=== PATIENT | male | born 1970 | race Caucasian/White ===

== ENCOUNTER 2019-03-22 11:11 | Emergency (ER) | payer OTHER ==
[2019-03-22 11:23] VITALS: BP 161/91; PULSE 103; TEMP 97.8; BMI 26.7
[2019-03-22] MEDS ORDERED: TETRACAINE 0.5% HCL 0.6ML DROPPER.BOTTLE OD ONE (11:50)
[2019-03-22] MEDS ORDERED: FLUORESCEIN NA 1 EA STRIP ONE (11:52)
[2019-03-22] MEDS ORDERED: TETRACAINE 0.5% OPHTH SOLN 2 ML BOTTLE ONE (11:52)
--- NOTE | 2019-03-22 12:09 | PDOC ---
History of Present Illness - General Chief Complaint: Eye Problem Stated Complaint: EYE PROBLEM Time Seen by Provider: 03/22/19 11:40 History Source: Patient Exam Limitations: No Limitations Past History - Past Medical History Allergies/Adverse Reactions: Allergies Allergy/AdvReac Type Severity Reaction Status Date / Time No Known Allergies Allergy Verified 03/22/19 11:21 Home Medications: Ambulatory Orders Ofloxacin 0.3% Ophth Soln [Ocuflox -] 2 drop OS Q6H #1 bottle 03/22/19 - Suicide/Smoking/Psychosocial Hx Smoking History: Never smoked Information on smoking cessation initiated: No Hx Alcohol Use: No Drug/Substance Use Hx: No *Physical Exam - Vital Signs Last Vital Signs Temp Pulse Resp BP Pulse Ox 97.8 F 103 H 16 161/91 98 03/22/19 11:21 03/22/19 11:21 03/22/19 11:21 03/22/19 11:21 03/22/19 11:21 - Physical Exam General Appearance: No: Apparent Distress HEENT: positive: EOMI, DESIRE, Other (vision 20/20 R eye, 20/30 L eye, L eye injected, tearing, +dye uptake on exam with small corneal abrasion noted) Respiratory/Chest: positive: Lungs Clear, Normal Breath Sounds. negative: Respiratory Distress Cardiovascular: positive: Regular Rhythm, Regular Rate, S1, S2. negative: Murmur Medical Decision Making - Medical Decision Making 48 y/o M with no sig pmh, no prior eye surgeries, presents with L eye pain from last night after his 1 year old daughter hit his eye. C/O L eye redness, tearing , pain and slightly blurred vision in eye. Wears glasses; not wearing contacts. Denies fever, n/v L corneal abrasion noted on exam 03/22/19 12:03 *DC/Admit/Observation/Transfer Diagnosis at time of Disposition: Corneal abrasion, left Qualifiers: Encounter type: initial encounter Qualified Code(s): S05.02XA - Injury of conjunctiva and corneal abrasion without foreign body, left eye, initial encounter - Discharge Dispostion Disposition: HOME Condition at time of disposition: Stable Decision to Admit order: No - Prescriptions Prescriptions: Ofloxacin 0.3% Ophth Soln [Ocuflox -] 2 drop OS Q6H #1 bottle - Referrals Referrals: Elmer Garcia [Primary Care Provider] - Brad Jensen MD [Staff Physician] - Call tomorrow - Patient Instructions Printed Discharge Instructions: DI for Corneal Abrasion Additional Instructions: Thank you for choosing [facility]. It was a pleasure taking care of you. Use the drops in the eye for 5 days Please follow-up with eye doctor. Return to the Emergency Department if your symptoms worsen or persist, worsening vision, unable to see, severe eye pain or other concerning symptoms. - Post Discharge Activity
== END 2019-03-22 12:20 | disposition home or self-care (01) ==
LOC: JERFT 11:11
DX: S05.02XA Injury of conjunctiva and corneal abrasion without foreign body, left eye, initial encounter (principal); W50.0XXA Accidental hit or strike by another person, initial encounter; Y93.89 Activity, other specified; Y92.018 Other place in single-family (private) house as the place of occurrence of the external cause; Y99.8 Other external cause status
CPT/HCPCS: 99281-25